=== PATIENT | female | born 1975 | race Caucasian/White ===

== ENCOUNTER → 2020-10-18 14:29 | Outpatient (CLI) | payer OTHER, SELFPAY ==
[2017-05-18 17:53] VITALS: BMI 23.5
--- NOTE | 2020-10-18 14:36 | RAD_ITS ---
STUDY: X-RAY - LUMBAR SPINE REASON FOR EXAM: Female, 45 years old. LOW BACK PAIN TECHNIQUE: 5 view(s) of the lumbar spine were obtained. COMPARISON: None FINDINGS: Normal lumbar lordosis. Mild scoliosis with convexity to the right versus tilted positioning. There is a normal alignment of the vertebrae. Mild degenerative disease at L5-S1, otherwise normal vertebral bodies and endplates. Normal disc space heights. There is no demonstrated fracture. There is no demonstrated spondylolysis of the pars interarticulares. The soft tissue structures are unremarkable. RAD/L/S Spine Min 4 Views IMPRESSION: Mild degenerative disease at L5-S1, otherwise normal x-ray examination of the lumbar spine. Electronically Signed: Yany Veliz MD at 3:39 EDT , Service support ,
== END ==
LOC: MTRAD 14:34
PROVIDERS: PCP Family Medicine; Referring Provider Family Medicine; Visit Provider Family Medicine
DX: M54.5 Low back pain (principal); G89.29 Other chronic pain
CPT/HCPCS: 72110

== ENCOUNTER → 2021-04-26 | Outpatient (CLI) | payer OTHER, SELFPAY ==
[2021-04-29 13:50] LABS: HPV APTIMA, High Risk Negative (Negative)
== END | disposition home or self-care (01) ==
LOC: LABSPEC 07-20 20:38
PROVIDERS: PCP Family Medicine; Visit Provider Obstetrics & Gynecology
DX: Z12.4 Encounter for screening for malignant neoplasm of cervix (principal)
CPT/HCPCS: 87624; 88175; G0145

== ENCOUNTER → 2022-04-06 | Outpatient (CLI) | payer OTHER, SELFPAY ==
--- NOTE | 2022-04-06 10:41 | US_ITS ---
STUDY: ULTRASOUND BREAST - RIGHT REASON FOR EXAM: Female, 46 years old. Palpable lump in the right breast. TECHNIQUE: Axial and longitudinal images of the RIGHT breast were performed with a high resolution ultrasound transducer. # OF IMAGES: 0 COMPARISON: None. FINDINGS: RIGHT Breast: Multiple cysts are seen throughout the right breast. The largest in the right breast measures 3.4 cm x 2.7 cm x 1.3 cm. This is at the 9 o''clock position of the breast at 3 cm from the nipple. IMPRESSION: Multiple right breast cysts. ASSESSMENT CATEGORY: BIRADS Category 2: Benign. A letter regarding these results will be sent to the patient by the facility within 30 days. Electronically Signed: Cassius Conte MD at 13:16 EST , STUDY: ULTRASOUND BREAST - LEFT REASON FOR EXAM: Female, 46 years old. Palpable lump left breast. TECHNIQUE: Axial and longitudinal images of the LEFT breast were performed with a high resolution ultrasound transducer. # OF IMAGES: 0 COMPARISON: None. FINDINGS: LEFT Breast: Multiple cysts are seen in the left breast. The largest cyst in the left breast measures 3.6 cm x 3 cm x 2.1 cm. This is at the 12 o''clock position breast. 1 cm from nipple. US/Breast Limited Unilateral IMPRESSION: Multiple cysts in the left breast. ASSESSMENT CATEGORY: BIRADS Category 2: Benign. A letter regarding these results will be sent to the patient by the facility within 30 days. Electronically Signed: Cassius Conte MD at 13:18 EST ,
== END | disposition home or self-care (01) ==
PROVIDERS: PCP Family Medicine; Visit Provider Obstetrics & Gynecology
DX: N63.10 Unspecified lump in the right breast, unspecified quadrant (principal); N64.4 Mastodynia
CPT/HCPCS: 76642

== ENCOUNTER → 2024-10-21 | Outpatient (CLI) | payer OTHER, SELFPAY ==
[2024-10-21 10:14] LABS: Mucous, Urine 0 SEEN /hpf (<or=2+); Red Blood Cells-Urine 0 SEEN /hpf (0-5); Squamous Epithelial Cells - UA 0 SEEN /hpf (5-10)
[2024-10-21 12:44] LABS: Hematocrit 40.3 % (37-47); Hemoglobin 13.3 g/dL (12.0-15.0); Immature Granulocytes Count 0.000 X10^3/uL (0.0-0.0); Mean Corp Hgb Conc 33.0 g/dL (32-36); Mean Corpuscular Volume 92.6 fL (81-99); Mean Platelet Vol. 10.1 fl (6.2-12.0); NRBC Flagged by Analyzer 0 % (0-5); Platelet Count 254 K/mm3 (150-450); RBC Distribution Width CV 11.9 % (11.6-14.6); RBC Distribution Width SD 40.9 fl (35.1-43.9); Red Blood Count 4.35 M/mm3 (4.2-5.4); White Blood Count 4.3 K/mm3 (4.4-11.0)
[2024-10-21 13:14] LABS: Color, Urine Yellow (Yellow); Glucose, Dipstick Normal (Normal); Ketone-Dipstick Negative (Negative); Leukocyte Esterase-Dipstick Negative /ul (Negative); Nitrite-Dipstick Negative (Negative); Occult Blood-Urine Negative /ul (Negative); Protein-Dipstick Negative (Negative); Specific Gravity, Urine 1.010 (1.002-1.030); Urine Bilirubin Dipstick Negative (Negative)
[2024-10-21 13:57] LABS: AST(SGOT) 19 U/L (<=31); Alanine Aminotransfer ALT/SGPT 14 U/L (<=34); Albumin, Serum 4.1 g/dL (3.5-5.0); Alkaline Phosphatase 62 U/L (35-104); Anion Gap 9 (5-15); BUN 12 mg/dL (4-19); BUN/Creat Ratio 16.0 RATIO (10-20); Calcium,Total 9.1 mg/dL (7.6-11.0); Carbon Dioxide 25.0 mmol/L (21.0-32.0); Chloride 105 mmol/L (98-108); Cholesterol 177 mg/dL (<=200); Globulin 2.5 g/dL (2.2-4.2); Glucose 79 mg/dL (70-99); Low Density Lipoprotein Calc. 100 mg/dL; Potassium 4.0 mmol/L (3.3-5.1); Triglycerides 60 mg/dL; Very Low Density Lipoprotein 12 mg/dL (5-40); Vitamin B12 707 pg/mL (180-914); Vitamin D,25 Hydroxy 33.5 ng/mL (30-100); cholesterol:hdl ratio screen 2.74
== END | disposition home or self-care (01) ==
LOC: MFPLAB 10:12
PROVIDERS: PCP Family Medicine; Referring Provider Family Medicine; Visit Provider Family Medicine
DX: Z00.00 Encounter for general adult medical examination without abnormal findings (principal); R53.83 Other fatigue
CPT/HCPCS: 80053; 80061; 81001; 82306; 82607; 84439; 84443; 85025

== ENCOUNTER → 2024-11-07 | Outpatient (CLI) | payer OTHER, SELFPAY ==
[2024-11-12 16:09] LABS: HPV APTIMA, High Risk Negative (Negative)
== END | disposition home or self-care (01) ==
LOC: LABSPEC 16:01
PROVIDERS: PCP Family Medicine; Visit Provider Obstetrics & Gynecology
DX: Z12.4 Encounter for screening for malignant neoplasm of cervix (principal); R87.610 Atypical squamous cells of undetermined significance on cytologic smear of cervix (ASC-US)
CPT/HCPCS: 87624; 88175; G0145

== ENCOUNTER 2024-11-21 09:04 | Outpatient (CLI) | payer OTHER, SELFPAY ==
--- NOTE | 2024-11-21 09:09 | BI_ITS ---
EXAM: DIAG MAMM W/CAD, BILAT; BILAT BRST GEORGINA STAND ALONE 11/21/2024 CLINICAL HISTORY: F, Age 49 y/o , BREAST DIFFUSE LUMPS BILATERALLY. Family history of cervical cancer in her mother at age 42. TECHNIQUE: DIAG MAMM W/CAD, BILAT; BILAT BRST GEORGINA STAND ALONE. COMPARISON: Mammograms 08/06/2019, 06/04/2019, 10/29/2012. Ultrasounds 04/06/2022, 08/06/2019, 10/29/2012. FINDINGS: TISSUE DENSITY: The breasts are extremely dense, which lowers the sensitivity of mammography. The mammogram demonstrates that the patient has dense breasts. Supplemental screening with whole breast ultrasound or MRI may be considered for further evaluation. Bilateral Breast Mammographic Findings: The patient presents with diffuse bilateral breast lumps, which correlates with the multiple bilateral circumscribed masses which represents benign cysts. There are no suspicious masses, grouped calcifications or architectural distortions in either breast. BI/DIAG MAMM W/CAD, BILAT IMPRESSION: 1. Bilateral breast cysts are benign. 2. There is no evidence of malignancy in either breast. OVERALL FINAL ASSESSMENT BI-RADS 2: BENIGN RECOMMENDATION: Routine annual follow-up in 1 Year A letter with findings and recommendations will be mailed to the patient. Reading Location: [id number]
--- NOTE | 2024-11-21 10:09 | BI_ITS ---
EXAM: DIAG MAMM W/CAD, BILAT; BILAT BRST GEORGINA STAND ALONE 11/21/2024 CLINICAL HISTORY: F, Age 49 y/o , BREAST DIFFUSE LUMPS BILATERALLY. Family history of cervical cancer in her mother at age 42. TECHNIQUE: DIAG MAMM W/CAD, BILAT; BILAT BRST GEORGINA STAND ALONE. COMPARISON: Mammograms 08/06/2019, 06/04/2019, 10/29/2012. Ultrasounds 04/06/2022, 08/06/2019, 10/29/2012. FINDINGS: TISSUE DENSITY: The breasts are extremely dense, which lowers the sensitivity of mammography. The mammogram demonstrates that the patient has dense breasts. Supplemental screening with whole breast ultrasound or MRI may be considered for further evaluation. Bilateral Breast Mammographic Findings: The patient presents with diffuse bilateral breast lumps, which correlates with the multiple bilateral circumscribed masses which represents benign cysts. There are no suspicious masses, grouped calcifications or architectural distortions in either breast. BI/Bilat Brst Georgina Stand Alone IMPRESSION: 1. Bilateral breast cysts are benign. 2. There is no evidence of malignancy in either breast. OVERALL FINAL ASSESSMENT BI-RADS 2: BENIGN RECOMMENDATION: Routine annual follow-up in 1 Year A letter with findings and recommendations will be mailed to the patient. Reading Location: [id number]
== END 2024-11-21 23:59 | disposition home or self-care (01) ==
LOC: OPBI 09:04
PROVIDERS: PCP Family Medicine; Referring Provider Obstetrics & Gynecology; Visit Provider Obstetrics & Gynecology
DX: N63.10 Unspecified lump in the right breast, unspecified quadrant (principal); N63.20 Unspecified lump in the left breast, unspecified quadrant
CPT/HCPCS: 77062; 77066; G0279

== ENCOUNTER 2024-12-08 16:20 | Outpatient (CLI) | payer OTHER, SELFPAY ==
--- NOTE | 2024-12-09 | CER_PTH ---
PATIENT: CHINA SUAREZ LOC: [facility] U#:[id number] AGE/SX: 49/F ROOM: RE12/08/[address]: Dr. Addis Andres DO : 1975 BED: DIS: 12/08/2024 SPEC #: [id number] RECD: 12/09/24 16:35 STATUS: TETE MALLIKA #: [id number] AFSHAN: 12/09/24 00:[address]: Addis Andres DEPT: SURGICAL PATHOLOGY RECD BY: Mulugeta Ayala ENTERED: 12/09/24 13:10 SP TYPE: CERV OTHR DR: Dr. Will Harper MD Tissues: A - Uterine cervix, NOS Procedures: Surgery Specimen Level IV HEADER OPERATION: Polypectomy PRE-OP DIAGNOSIS: Cervical polyp TISSUE SUBMITTED: A- Cervical polyp MICROSCOPIC DIAGNOSIS A. Cervix, polypectomy: - Benign endocervical polyp with marked active chronic inflammation. MICROSCOPIC DESCRIPTION Slides are reviewed. GROSS DESCRIPTION A. Received in formalin labeled with the patient's name and date of is a 1.3 x 1.0 x 0.8 cm sherwood-pink to red, granular, polypoid portion of tissue and slightly hemorrhagic mucoid material. The tissue fragment is trisected and the specimen is entirely submitted in 1 cassette. FL 12/09/2024 CPT:95021
== END 2024-12-08 23:59 | disposition home or self-care (01) ==
PROVIDERS: PCP Family Medicine; Referring Provider Obstetrics & Gynecology; Visit Provider Obstetrics & Gynecology
DX: N84.1 Polyp of cervix uteri (principal)
CPT/HCPCS: 88305